=== PATIENT | female | born 1970 | race African-American/Black ===

== ENCOUNTER 2020-05-15 00:16 | Emergency (ER) | payer OTHER ==
[~2020-05-15] VITALS: Ht 172.7 cm; Wt 148.0 kg
[2020-05-15] MEDS ORDERED: ASPIRIN 81MG TABLET PO ONE (01:00)
[2020-05-15] MEDS ORDERED: SODIUM CHLORIDE 0.9% 1,000 ML IV ONE (01:00)
[2020-05-15] MEDS ORDERED: NITROGLYCERIN 0.4MG TABLET SL SL PRN (01:00)
[2020-05-15 01:05] LABS: BASOPHILS % 0.8 % (0.0-2.0); EOSINOPHILS % 0.9 % (0.0-5.0); HEMATOCRIT. 36.5 % (36.0-48.0); HEMOGLOBIN. 12.4 g/dL (12.0-16.0); LYMPHOCYTES % 44.1 % (20.0-50.0); MEAN CORPUSCULAR HEMOGLOBIN 28.5 pg (28.0-32.0); MEAN CORPUSCULAR VOLUME 83.7 fL (81.0-99.0); MEAN PLATELET VOLUME 7.6 fl (7.4-10.4); MONOCYTES % 6.4 % (2.0-8.0); NEUTROPHILS % 47.8 % (40.0-76.0); PLATELET 395 x1000/uL (130-400); RED BLOOD CELL COUNT 4.36 mill/uL (4.2-5.4); RED CELL DISTRIBUTION WIDTH 13.7 % (11.6-14.6)
[2020-05-15 01:12] LABS: CHLORIDE 100 mEq/L (98-107)
[2020-05-15 01:21] LABS: BETA HYDROXYBUTYRATE 0.1 mMol/L (0.0-0.3)
[2020-05-15 07:52] VITALS: BP 105/57
== END 2020-05-15 08:39 | disposition short-term general hospital (02) ==
LOC: ER 00:16
DX: R07.89 Other chest pain (principal); E11.65 Type 2 diabetes mellitus with hyperglycemia; N28.9 Disorder of kidney and ureter, unspecified; E66.9 Obesity, unspecified; I10 Essential (primary) hypertension
CPT/HCPCS: 36415; 71045; 80053; 82010; 82962; 83880; 84484; 85025; 93005; 96360; 96361; 99285; J7030; Z7610